=== PATIENT | female | born 1980 | race African-American/Black ===

== ENCOUNTER 2016-07-05 07:43 | Inpatient (IN) | payer OTHER ==
[~2016-07-05] VITALS: Ht 165.1 cm; Wt 61.2 kg
--- NOTE | ~2016-07-05 | D ---
[facility] [place] [address] DISCHARGE SUMMARY Name: MOISE ESCALONA Room #: 401-I [facility] IN M.R.#: [id number] Admission: 07/06/16 Attend Phys: Nessa Lamar MD Discharge: 07/06/16 Date of : 82 Report #: [id number] THIS REPORT FOR: //name// CC: JAMMIE physician/PCP Nessa Lamar DATE OF SERVICE: 07/06/2016 DISCHARGE DIAGNOSES: 1. Acute pyelonephritis with intractable flank pain. 2. Tobacco abuse. CONSULTS: None. PROCEDURES: None. HOSPITAL COURSE: The patient is a 36-year-old female who presented to the ER secondary to back pain and dysuria. Please see details of admission dictated by myself on 07/05. The patient was found to have a dirty urine and was started on IV antibiotics, antiemetics and pain control. Over the course of 24 hours, she improved significantly and was anxious to go home. At that time, she denied any other complaints and nurses reported no other problems really. Her vital signs were stable and she was tolerating oral intake and able to have her pain controlled with oral medications. DISCHARGE DISPOSITION: To home. DISCHARGE PHYSICAL EXAMINATION: VITAL SIGNS: Temperature of 98, pulse 89 and blood pressure 125/92. GENERAL: She is awake, alert, answering questions appropriately, in no acute respiratory distress. HEENT: Normocephalic, atraumatic. Pupils equal. NECK: Supple. CARDIOVASCULAR: Regular rate and rhythm. No murmurs. LUNGS: Clear to auscultation bilaterally. No crackles or wheezes. ABDOMEN: Soft. No distention or tenderness. EXTREMITIES: No edema. NEUROLOGIC: Nonfocal. DISCHARGE MEDICATIONS: Cipro 500 b.i.d. times 13 days, probiotic one daily for 14 days and Percocet p.r.n. DIET: Regular diet. ACTIVITY: As tolerated. [facility] [address] [place] [address] DISCHARGE SUMMARY Name: MOISE ESCALONA Room #: 401-I DIS IN .R.#: [id number] Admission: 07/06/16 Attend Phys: Nessa Lamar MD Discharge: 07/06/16 Date of : 82 Report #: [id number] FOLLOWUP: Follow up with primary care in 1 week followup and to seek immediate medical attention if symptoms worsen, recur or if she has any significant medical concerns. <ELECTRONICALLY SIGNED> By: Nessa Lamar MD 07/27/162009 1150 [id number] Nessa Lamar MD /nt
--- NOTE | ~2016-07-05 | H ---
[facility] [place] [address] HISTORY AND PHYSICAL Name: MOISE ESCALONA Room #: 401-I [facility] IN M.R.#: [id number] Admission: 07/06/16 Attend Phys: Nessa Lamar MD Discharge: 07/06/16 Date of : 82 Report #: [id number] THIS REPORT FOR: //name// CC: JAMMIE physician/PCP Nessa Lamar CHIEF COMPLAINT: Back pain and dysuria. HISTORY OF PRESENT ILLNESS: The patient is a 36-year-old female with essentially no past medical history, who presented to the ER secondary to right flank pain and dysuria. She indicates that symptoms started on Tuesday and progressively worsened. She reports subjective fever, chills, nausea and vomiting. She did not see anybody for her urine infection despite the fact that she had symptoms. Workup here in the ER revealed that her urine was positive. She has had intractable pain and is being admitted. PAST MEDICAL HISTORY: None. PAST SURGICAL HISTORY: None. SOCIAL HISTORY: She smokes 7-8 cigarettes daily. FAMILY HISTORY: Mom has heart disease and CVA. REVIEW OF SYSTEMS: A 14-point review of systems was conducted, all negative, except for above. MEDICATIONS: None. ALLERGIES: None. PHYSICAL EXAMINATION: VITAL SIGNS: Temperature of 98, pulse 77, blood pressure 124/73 and O2 sat 93% on room air. GENERAL: She is awake, alert, answering questions appropriately and in no acute respiratory distress. HEENT: Normocephalic, atraumatic. Pupils equal. NECK: Supple. CARDIOVASCULAR: Regular rate and rhythm. No murmurs. LUNGS: Clear to auscultation bilaterally. No crackles or wheeze. ABDOMEN: Soft. She has got right flank tenderness. EXTREMITIES: No edema. NEUROLOGIC: Nonfocal. LABS AND TESTING: U/A is positive for nitrites and leukocytes. CT of the abdomen shows left hemorrhagic ovarian cyst. Sodium 138, potassium 4.2, BUN and creatinine 7 and 0.7. White count of 5.2, H and H of 11 and 34 and platelets [facility] [address] [place] [address] HISTORY AND PHYSICAL Name: MOISE ESCALONA Room #: [address] [place] [address] [place] M.R.#: [id number] Admission: 07/06/16 Attend Phys: Nessa Lamar MD Discharge: 07/06/16 Date of : 82 Report #: [id number]. ASSESSMENT AND PLAN: 1. Suspect pyelonephritis with intractable flank pain. We will start on some Cipro, antiemetics, pain control and IV fluids. Follow urine culture. 2. Tobacco abuse. Advised cessation. 3. Deep venous thrombosis prophylaxis with SCD in light of the fact she has an hemorrhagic ovarian cyst. <ELECTRONICALLY SIGNED> By: Nessa Lamar MD 07/27/162009 1157 1305 Nessa Lamar MD /nt
[2016-07-05 07:51] VITALS: BP 133/86
[2016-07-05 08:08] LABS: URINE BILIRUBIN NEGATIVE (Negative); URINE BLOOD 3+ (Negative); URINE KETONES NEGATIVE (Negative); URINE LEUKOCYTES-REFLEX 1+ (Negative)
[2016-07-05 08:12] LABS: URINE COLOR ORANGE
[2016-07-05 08:14] LABS: SQUAMOUS 0-3 Few /LPF (0-3); URINE RBC >20 Many /HPF (0-2); URINE WBC-REFLEX 6-15 Few /HPF (0-5)
[2016-07-05 08:15] LABS: CASTS None Seen /LPF (None Seen); CRYSTALS None Seen /LPF (None Seen)
[2016-07-05 08:58] LABS: ABSOLUTE NEUTROPHILS 3.3 thou/uL (1.4-8.2); BASOPHILS 0.8 % (0.0-2.0); EOSINOPHILS 1.8 % (0.0-3.0); HEMATOCRIT 34.8 % (37.0-47.0); HEMOGLOBIN 11.5 gm/dL (12.0-15.0); LYMPHOCYTES 25.9 % (24.0-44.0); MCH 26.9 pg (26.0-34.0); MCHC 32.9 % (28.0-37.0); MCV 81.6 fL (80.0-100.0); MONOCYTES 7.4 % (1.0-8.0); PLATELET COUNT 242 thou/uL (150-400); POLYS 64.1 % (36.0-66.0); RBC 4.27 mil/uL (4.20-5.00); RDW 13.3 % (10.5-14.5); WBC 5.2 thou/uL (4.0-11.0)
[2016-07-05 09:09] LABS: MANUAL DIFF NO
[2016-07-05 09:12] LABS: CALCIUM 8.5 mg/dL (8.5-10.1); CREATININE 0.7 mg/dL (0.6-1.3); POTASSIUM 4.2 mmol/L (3.5-5.1)
[2016-07-05 13:15] VITALS: BP 108/64
[2016-07-05 13:48] VITALS: BP 98/60
[2016-07-05 16:50] VITALS: BP 125/82
[2016-07-05 20:26] VITALS: BP 121/72
[2016-07-06 04:20] VITALS: BP 137/80
[2016-07-06 06:22] LABS: ABSOLUTE NEUTROPHILS 2.1 thou/uL (1.4-8.2); BASOPHILS 0.7 % (0.0-2.0); EOSINOPHILS 1.5 % (0.0-3.0); HEMATOCRIT 33.4 % (37.0-47.0); HEMOGLOBIN 11.2 gm/dL (12.0-15.0); LYMPHOCYTES 44.6 % (24.0-44.0); MCH 27.7 pg (26.0-34.0); MCHC 33.4 % (28.0-37.0); MCV 82.8 fL (80.0-100.0); MONOCYTES 8.9 % (1.0-8.0); PLATELET COUNT 217 thou/uL (150-400); POLYS 44.3 % (36.0-66.0); RBC 4.04 mil/uL (4.20-5.00); WBC 4.6 thou/uL (4.0-11.0)
[2016-07-06 06:26] LABS: MANUAL DIFF NO
[2016-07-06 08:02] VITALS: BP 125/92
[2016-07-06] MEDS ORDERED: CIPRO500 MG PO (10:17)
[2016-07-06] MEDS ORDERED: PERCOCET 7.5-31 EACH PO (10:17)
[2016-07-06] MEDS ORDERED: PROBIOTIC1 EAC1 PO (10:17)
[2016-07-06 10:27] VITALS: BP 125/92
== END 2016-07-06 12:00 | disposition home or self-care (01) | DRG 690 ==
LOC: ER 07:43 → EROBS 10:25 → 4N 13:16
PROVIDERS: Emergency Medicine; Family Medicine
DX: N12 Tubulo-interstitial nephritis, not specified as acute or chronic (principal); F17.210 Nicotine dependence, cigarettes, uncomplicated; Z82.49 Family history of ischemic heart disease and other diseases of the circulatory system; Z82.3 Family history of stroke; Z71.6 Tobacco abuse counseling
CPT/HCPCS: 10091

== ENCOUNTER 2017-02-13 22:39 | Emergency (ER) | payer OTHER ==
[~2017-02-13] VITALS: Ht 162.6 cm; Wt 56.7 kg
[~2017-02-13 22:39] MED LIST: CIPRO500 MG PO; PERCOCET 7.5-31 EACH PO; PROBIOTIC1 EAC1 PO
[2017-02-13 23:41] LABS: URINE BILIRUBIN NEGATIVE (Negative); URINE BLOOD NEGATIVE (Negative); URINE COLOR YELLOW; URINE GLUCOSE-RANDOM* NEGATIVE (Negative); URINE KETONES NEGATIVE (Negative); URINE LEUKOCYTES-REFLEX NEGATIVE (Negative); URINE PROTEIN (DIPSTICK) NEGATIVE (Negative); URINE SPECIFIC GRAVITY >= 1.030 (1.003-1.035); URINE UROBILINOGEN 0.2 E.U./dl (0.2-1.0)
[2017-02-14 00:15] LABS: SQUAMOUS >10 Many /LPF (0-3)
[2017-02-14 00:16] LABS: CASTS None Seen /LPF (None Seen); CRYSTALS None Seen /LPF (None Seen); URINE RBC 0-2 Rare /HPF (0-2); URINE WBC-REFLEX 0-5 Rare /HPF (0-5)
[2017-02-14 00:19] LABS: ABSOLUTE NEUTROPHILS 1.4 thou/uL (1.4-8.2); EOSINOPHILS 2.3 % (0.0-3.0); HEMATOCRIT 35.2 % (37.0-47.0); HEMOGLOBIN 11.8 gm/dL (12.0-15.0); LYMPHOCYTES 54.4 % (24.0-44.0); MCH 27.2 pg (26.0-34.0); MCHC 33.5 g/dL (28.0-37.0); MCV 81.2 fL (80.0-100.0); MONOCYTES 8.8 % (1.0-8.0); PLATELET COUNT 260 thou/uL (150-400); POLYS 33.5 % (36.0-66.0); RBC 4.34 mil/uL (4.20-5.00); RDW 13.3 % (10.5-14.5); WBC 4.3 thou/uL (4.0-11.0)
[2017-02-14 00:25] LABS: CALCIUM 8.5 mg/dL (8.5-10.1); CREATININE 0.7 mg/dL (0.6-1.0); POTASSIUM 4.1 mmol/L (3.5-5.1)
[2017-02-14 00:29] LABS: MANUAL DIFF NO
[2017-02-14 00:32] LABS: ALBUMIN 3.8 g/dL (3.4-5.0); TOTAL BILIRUBIN 0.9 mg/dL (<0.1-1.0); TOTAL PROTEIN 7.2 g/dL (6.4-8.2)
[2017-02-14] MEDS ORDERED: TRAMADOL 50 MG50 MG PO (00:50)
[2017-02-14] MEDS ORDERED: NAPROSYN500 MG PO (00:50)
== END 2017-02-14 01:15 | disposition home or self-care (01) ==
LOC: ER 22:39
PROVIDERS: Emergency Medicine
DX: M54.10 Radiculopathy, site unspecified (principal)

== ENCOUNTER 2017-03-20 05:56 | Emergency (ER) | payer OTHER ==
[~2017-03-20] VITALS: Ht 162.6 cm; Wt 57.6 kg
[~2017-03-20 05:56] MED LIST changes: +NAPROSYN500 MG PO; +TRAMADOL 50 MG50 MG PO
[2017-03-20] MEDS ORDERED: PENICILLIN VK500 M1 PO (06:31)
[2017-03-20] MEDS ORDERED: NORCO 5-325 TA1 EACH PO (06:31)
== END 2017-03-20 06:51 | disposition home or self-care (01) ==
LOC: ER 05:56
DX: K04.7 Periapical abscess without sinus (principal); F17.210 Nicotine dependence, cigarettes, uncomplicated

== ENCOUNTER 2017-11-12 23:09 | Emergency (ER) | payer OTHER ==
[~2017-11-12] VITALS: Ht 165.1 cm; Wt 61.2 kg
[~2017-11-12 23:09] MED LIST changes: +NORCO 5-325 TA1 EACH PO; +PENICILLIN VK500 M1 PO
[2017-11-13] MEDS ORDERED: FLEXERIL PO (00:49)
[2017-11-13] MEDS ORDERED: NORCO 5-325 TA1 EACH PO (00:49)
== END 2017-11-13 01:12 | disposition home or self-care (01) ==
LOC: ER 23:09
DX: M54.5 Low back pain (principal); F17.210 Nicotine dependence, cigarettes, uncomplicated